=== PATIENT | female | born 1960 | race Caucasian/White ===

== ENCOUNTER 2021-04-19 13:42 | Emergency (ER) | payer OTHER | END 2021-04-19 15:14 | disposition home or self-care (01) | LOC: FER 13:42 | DX: S83.91XA Sprain of unspecified site of right knee, initial encounter (principal); I25.2 Old myocardial infarction; E11.9 Type 2 diabetes mellitus without complications; I10 Essential (primary) hypertension; X50.1XXA Overexertion from prolonged static or awkward postures, initial encounter; Y92.009 Unspecified place in unspecified non-institutional (private) residence as the place of occurrence of the external cause | CPT/HCPCS: 73564 ==